=== PATIENT | female | born 1975 | race Hispanic/Latino ===

== ENCOUNTER 2020-02-23 10:57 | Emergency (ER) | payer OTHER ==
[2020-02-24 13:59] LABS: SARS-CoV-2 MS2 Positive; SARS-CoV-2 N Gene Positive; SARS-CoV-2 S Gene Positive; SARS-CoV-2 orf1ab Positive
== END 2020-02-23 11:40 | disposition home or self-care (01) ==
LOC: ERS 10:57
DX: U07.1 COVID-19 (principal); R05 Cough
CPT/HCPCS: 87635; 99283; U0003